=== PATIENT | female | born 1985 | race African-American/Black ===

== ENCOUNTER 2017-06-20 10:02 | Emergency (ER) | payer BC ==
[~2017-06-20] VITALS: Ht 165.1 cm; Wt 158.3 kg
[~2017-06-20 10:02] MED LIST: ALBUTEROL SUL5 MG/M1 IH; AMOXICILLIN 50500 M1 PO; AUGMENTIN 500-1 EACH PO; AUGMENTIN 875875 MG PO; BACTRIM DS TAB1 EACH PO; FLONASE 0.05%50 MCG NASAL; IBUPROFEN 600600 M1 PO; KEFLEX500 MG PO; MEDROL DOSPAK21 TAB PO; MOBIC7.5 MG PO; MUCINEX D TABL1 EAC1 PO; NOHOMEMEDICATIONS; NORCO 5-325 TA1 EACH PO; PREDNISONE 20 M20 MG PO; PROAIR HFA8.5 GM INH; PROMETHAZINE-C120 ML PO; VENTOLIN HFA 1818 GM INH
[2017-06-20 10:04] VITALS: BP 146/87
[2017-06-20] MEDS ORDERED: NORCO 5-325 TA1 EACH PO (10:20)
== END 2017-06-20 10:20 | disposition home or self-care (01) ==
LOC: ER 10:02
DX: M54.12 Radiculopathy, cervical region (principal); M25.511 Pain in right shoulder; I10 Essential (primary) hypertension; J45.909 Unspecified asthma, uncomplicated; Z87.891 Personal history of nicotine dependence; F10.99 Alcohol use, unspecified with unspecified alcohol-induced disorder

== ENCOUNTER 2017-09-17 10:59 | Emergency (ER) | payer BC ==
[~2017-09-17] VITALS: Ht 165.1 cm; Wt 181.4 kg
[2017-09-17 11:29] LABS: URINE BILIRUBIN NEGATIVE (Negative); URINE BLOOD 3+ (Negative); URINE COLOR RED; URINE GLUCOSE-RANDOM* TRACE (Negative); URINE KETONES NEGATIVE (Negative); URINE NITRITE NEGATIVE (Negative); URINE PROTEIN (DIPSTICK) 1+ (Negative); URINE SPECIFIC GRAVITY >= 1.030 (1.003-1.035); URINE UROBILINOGEN 0.2 E.U./dl (0.2-1.0)
[2017-09-17 11:41] LABS: ABSOLUTE NEUTROPHILS 4.2 thou/uL (1.4-8.2); BASOPHILS 0.8 % (0.0-2.0); EOSINOPHILS 2.4 % (0.0-3.0); HEMATOCRIT 37.4 % (37.0-47.0); HEMOGLOBIN 11.8 gm/dL (12.0-15.0); LYMPHOCYTES 34.1 % (24.0-44.0); MCH 23.9 pg (26.0-34.0); MCHC 31.5 g/dL (28.0-37.0); MCV 75.8 fL (80.0-100.0); MONOCYTES 7.5 % (1.0-8.0); PLATELET COUNT 441 thou/uL (150-400); POLYS 55.2 % (36.0-66.0); RBC 4.94 mil/uL (4.20-5.00); RDW 16.6 % (10.5-14.5); WBC 7.7 thou/uL (4.0-11.0)
[2017-09-17 11:43] LABS: MANUAL DIFF NO
[2017-09-17 11:46] LABS: CALCIUM 8.8 mg/dL (8.5-10.1); CREATININE 0.8 mg/dL (0.6-1.0); POTASSIUM 3.8 mmol/L (3.5-5.1)
[2017-09-17 11:47] LABS: CASTS None Seen /LPF (None Seen); CRYSTALS None Seen /LPF (None Seen); SQUAMOUS 0-3 Few /LPF (0-3); URINE RBC >20 Many /HPF (0-2)
[2017-09-17 11:48] LABS: BACTERIA 1-9 Few /HPF (None Seen); URINE WBC 0-5 Rare /HPF (0-5)
[2017-09-17] MEDS ORDERED: TRAMADOL 50 MG50 MG PO (12:39)
[2017-09-17] MEDS ORDERED: NAPROSYN500 MG PO (12:39)
[2017-09-17 12:57] VITALS: BP 125/71
== END 2017-09-17 12:57 | disposition home or self-care (01) ==
LOC: ER 10:59
PROVIDERS: Nurse Practitioner Family
DX: N93.8 Other specified abnormal uterine and vaginal bleeding (principal); N94.6 Dysmenorrhea, unspecified; I10 Essential (primary) hypertension; J45.909 Unspecified asthma, uncomplicated; F10.99 Alcohol use, unspecified with unspecified alcohol-induced disorder; Z87.891 Personal history of nicotine dependence

== ENCOUNTER 2018-07-02 07:37 | Emergency (ER) | payer BC, OTHER ==
[~2018-07-02] VITALS: Ht 165.1 cm; Wt 158.8 kg
[~2018-07-02 07:37] MED LIST changes: +NAPROSYN500 MG PO; +TRAMADOL 50 MG50 MG PO
[2018-07-02 07:38] VITALS: BP 178/91
== END 2018-07-02 08:09 | disposition home or self-care (01) ==
LOC: ER 07:37
DX: B30.9 Viral conjunctivitis, unspecified (principal); I10 Essential (primary) hypertension; J45.909 Unspecified asthma, uncomplicated; F17.210 Nicotine dependence, cigarettes, uncomplicated

== ENCOUNTER 2018-12-19 12:39 | Emergency (ER) | payer BC ==
[~2018-12-19] VITALS: Ht 165.1 cm; Wt 158.8 kg
[~2018-12-19 12:39] MED LIST changes: +PREDNISONE 5 MG5 M1 PO
[2018-12-19] MEDS ORDERED: TRAMADOL 50 MG50 MG PO (14:13)
[2018-12-19] MEDS ORDERED: NAPROSYN500 MG PO (14:13)
[2018-12-19 15:35] VITALS: BP 150/84
== END 2018-12-19 15:40 | disposition home or self-care (01) ==
LOC: ER 12:39
DX: M65.261 Calcific tendinitis, right lower leg (principal); F17.210 Nicotine dependence, cigarettes, uncomplicated; I10 Essential (primary) hypertension; J45.909 Unspecified asthma, uncomplicated

== ENCOUNTER 2019-05-05 00:56 | Emergency (ER) | payer BC, OTHER ==
[~2019-05-05] VITALS: Ht 165.1 cm; Wt 136.1 kg
[2019-05-05] MEDS ORDERED: TOBRAMYCIN SULFA5 M1 OPHTHALMIC (02:35)
[2019-05-05 02:45] VITALS: BP 150/84
== END 2019-05-05 02:46 | disposition home or self-care (01) ==
LOC: ER 00:56
DX: S05.01XA Injury of conjunctiva and corneal abrasion without foreign body, right eye, initial encounter (principal); I10 Essential (primary) hypertension; J45.909 Unspecified asthma, uncomplicated; F17.210 Nicotine dependence, cigarettes, uncomplicated; X58.XXXA Exposure to other specified factors, initial encounter; Y93.89 Activity, other specified; Y92.830 Public park as the place of occurrence of the external cause; Y99.8 Other external cause status